=== PATIENT | female | born 1965 | race Caucasian/White ===

== ENCOUNTER 2018-08-07 11:06 | Outpatient (REF) | payer BC, SELFPAY ==
[2018-08-07 19:43] LABS: ALT 48 U/L (12-78); AST 20 U/L (15-37); Anion Gap 10.5 mmol/L (3-11); BUN 31 mg/dL (7-18); CO2 28.5 mmol/L (21.0-32.0); CREATININE 1.15 mg/dL (0.55-1.02); Calcium 9.3 mg/dL (8.5-10.1); Chloride 104 mmol/L (98-107); Estimated GFR 48.99 (mL/min/1.73m2); Glucose 104 mg/dL (70-100); Potassium 4.1 mmol/L (3.5-5.1); Sodium 143 mmol/L (136-145); TSH 0.66 uIU/mL (0.358-3.74)
[2018-08-07 20:30] LABS: COMMENT (LAB VIEW ONLY) 121.99 mg/dL; Microalb ug/mg Crea 5.7 ug/mg Cr
== END 2018-08-07 11:26 ==
LOC: NCHCN 11:06
PROVIDERS: PCP Physician Assistant Medical; Visit Provider Nurse Practitioner Family
DX: E03.9 Hypothyroidism, unspecified (principal); I10 Essential (primary) hypertension
CPT/HCPCS: 80048; 82043; 82570; 84443; 84450; 84460; 87480; 87510; 87660

== ENCOUNTER 2018-08-27 10:31 | Outpatient (REF) | payer BC, SELFPAY ==
[2018-08-27 19:28] LABS: Cholesterol 192 mg/dL (50-200); HDL Cholesterol 47 mg/dL (40-60); LDL CHOLESTEROL 112 mg/dL (<100); Triglyceride 207 mg/dL (30-150)
== END 2018-08-27 10:51 ==
LOC: NCHCN 10:31
PROVIDERS: PCP Physician Assistant Medical; Visit Provider Nurse Practitioner Family
DX: E78.5 Hyperlipidemia, unspecified (principal)
CPT/HCPCS: 80061; 83721

== ENCOUNTER 2019-08-18 10:13 | Outpatient (REF) | payer BC, SELFPAY ==
[2019-08-18 20:42] LABS: ALT 37 U/L (14-59); AST 19 U/L (15-37); Albumin 4.2 g/dL (3.4-5.0); Alkaline Phosphatase 124 U/L (46-116); Anion Gap 7.5 mmol/L (3-11); BUN 30 mg/dL (7-18); Bilirubin, Total 0.3 mg/dL (0.2-1.0); CO2 30.5 mmol/L (21.0-32.0); CREATININE 0.72 mg/dL (0.55-1.02); Calcium 9.2 mg/dL (8.5-10.1); Chloride 104 mmol/L (98-107); Glucose 92 mg/dL (74-106); Potassium 3.9 mmol/L (3.5-5.1); Sodium 142 mmol/L (136-145); TSH (W/Ref FT4) 0.64 uIU/mL (0.36-3.74); Total Protein 7.1 g/dL (6.4-8.2)
[2019-08-18 21:06] LABS: HCT 38.2 % (36.0-46.0); HGB 12.3 g/dL (12.0-15.5); Mean Corp. HGB Concentration 32.2 g/dL (32.0-36.0); Mean Corpuscular Hemoglobin 28.3 pg (27.0-33.0); Mean Corpuscular Volume 87.8 fL (80-95); Mean Platelet Volume 10.1 fL (8.0-11.0); Platelet Count 244 x1000/uL (130-400); RBC 4.35 m/cumm (4.00-5.20); RBC Distribution Width 13.4 % (11.7-14.6); White Blood Cell Count 5.06 k/cumm (4.4-10.8)
[2019-08-18 21:30] LABS: Hemoglobin A1C 6.3 % (3.8-5.6)
== END 2019-08-18 10:33 ==
LOC: NCHCN 10:13
PROVIDERS: PCP Physician Assistant Medical; Visit Provider Nurse Practitioner Family
DX: I10 Essential (primary) hypertension (principal); E30.9 Disorder of puberty, unspecified; R53.83 Other fatigue; R73.9 Hyperglycemia, unspecified
CPT/HCPCS: 80053; 85027; 83036; 84443

== ENCOUNTER 2020-11-22 12:19 | Outpatient (REF) | payer BC, SELFPAY ==
[2020-11-22 16:00] LABS: ALT 43 U/L (14-59); AST 22 U/L (15-37); Albumin 4.1 g/dL (3.4-5.0); Alkaline Phosphatase 126 U/L (46-116); Anion Gap 7.1 mmol/L (3-11); BUN 30 mg/dL (7-18); Bilirubin, Total 0.3 mg/dL (0.2-1.0); CO2 30.9 mmol/L (21.0-32.0); CREATININE 0.9 mg/dL (0.55-1.02); Calcium 9.3 mg/dL (8.5-10.1); Calculated LDL 88 mg/dL (<100); Chloride 104 mmol/L (98-107); Cholesterol 192 mg/dL (<200); Glucose 93 mg/dL (74-106); HDL Cholesterol 46 mg/dL (40-60); Potassium 4.2 mmol/L (3.5-5.1); Sodium 142 mmol/L (136-145); TSH 0.66 uIU/mL (0.36-3.74); Total Protein 7.3 g/dL (6.4-8.2); Triglyceride 291 mg/dL (<150)
== END 2020-11-22 12:20 | disposition home or self-care (01) ==
LOC: NCHCN 12:19
PROVIDERS: PCP Physician Assistant Medical; Visit Provider Nurse Practitioner Family
DX: R73.03 Prediabetes (principal); I10 Essential (primary) hypertension; E03.9 Hypothyroidism, unspecified; E78.5 Hyperlipidemia, unspecified
CPT/HCPCS: 80053; 80061; 83036; 84443

== ENCOUNTER 2021-11-20 16:10 | Outpatient (REF) | payer BC, SELFPAY ==
[2021-11-20 20:15] LABS: ALT 65 U/L (14-59); AST 31 U/L (15-37); Albumin 4.1 g/dL (3.4-5.0); Alkaline Phosphatase 118 U/L (46-116); Anion Gap 7.2 mmol/L (3-11); BUN 27 mg/dL (7-18); Bilirubin, Total 0.4 mg/dL (0.2-1.0); CO2 29.8 mmol/L (21.0-32.0); CREATININE 0.8 mg/dL (0.55-1.02); Calcium 9.4 mg/dL (8.5-10.1); Calculated LDL 98 mg/dL (<100); Chloride 102 mmol/L (98-107); Cholesterol 197 mg/dL (<200); Glucose 101 mg/dL (74-106); HDL Cholesterol 46 mg/dL (40-60); Potassium 4.6 mmol/L (3.5-5.1); Sodium 139 mmol/L (136-145); TSH 0.38 uIU/mL (0.36-3.74); Total Protein 7.4 g/dL (6.4-8.2); Triglyceride 267 mg/dL (<150)
== END 2021-11-20 16:11 | disposition home or self-care (01) ==
LOC: NCHCN 16:10
PROVIDERS: PCP Physician Assistant Medical; Visit Provider Nurse Practitioner Family
DX: I10 Essential (primary) hypertension (principal); E78.5 Hyperlipidemia, unspecified; E03.9 Hypothyroidism, unspecified; R73.03 Prediabetes
CPT/HCPCS: 80053; 80061; 84443

== ENCOUNTER 2022-11-19 13:31 | Outpatient (REF) | payer BC, SELFPAY ==
[2022-11-19 20:23] LABS: ALT 43 U/L (14-59); AST 24 U/L (15-37); Albumin 4.1 g/dL (3.4-5.0); Alkaline Phosphatase 120 U/L (46-116); Anion Gap 9.8 mmol/L (3-11); BUN 22 mg/dL (7-18); Bilirubin, Total 0.3 mg/dL (0.2-1.0); CO2 27.2 mmol/L (21.0-32.0); Calcium 9.7 mg/dL (8.5-10.1); Calculated LDL 89 mg/dL (<100); Chloride 104 mmol/L (98-107); Cholesterol 184 mg/dL (<200); Glucose 109 mg/dL (74-106); HDL Cholesterol 54 mg/dL (40-60); Potassium 4.3 mmol/L (3.5-5.1); Sodium 141 mmol/L (136-145); TSH 0.72 uIU/mL (0.36-3.74); Total Protein 7.8 g/dL (6.4-8.2); Triglyceride 206 mg/dL (<150)
== END 2022-11-19 13:32 | disposition home or self-care (01) ==
LOC: NCHCN 13:31
PROVIDERS: PCP Physician Assistant Medical; Visit Provider Nurse Practitioner Family
DX: I10 Essential (primary) hypertension (principal); E78.5 Hyperlipidemia, unspecified; E03.9 Hypothyroidism, unspecified
CPT/HCPCS: 80053; 80061; 84443

== ENCOUNTER 2023-05-19 14:18 | Outpatient (REF) | payer BC, SELFPAY ==
[2023-05-19 19:28] LABS: TSH (W/Ref FT4) 0.48 uIU/mL (0.36-3.74)
== END 2023-05-19 14:19 | disposition home or self-care (01) ==
LOC: NCHCN 14:18
PROVIDERS: PCP Physician Assistant Medical; Visit Provider Nurse Practitioner Family
DX: R61 Generalized hyperhidrosis (principal)
CPT/HCPCS: 84443

== ENCOUNTER 2023-11-17 15:14 | Outpatient (REF) | payer BC, SELFPAY ==
--- NOTE | 2023-11-17 11:20 | SKI_PTH ---
PATIENT: Mally Pat LOC: [facility]#:[id number] AGE/SX: 58/F ROOM: RE11/17/[address]: Brittney Hector : 1965 BED: DIS: 11/17/2023 SPEC #: [id number] RECD: 11/17/23 18:20 STATUS: RUBI REQ #: [id number] YORDAN: 11/17/23 11:[address] RECD BY: Berta Osei ENTERED: 11/17/23 18:21 SP TYPE: RUIZ ARRIETA DR: Darell Orourke V Tissues: 1 - SKIN BIOPSY(SHAVE/PUNCH) Procedures: SKIN LEVEL 4 Comments: [id number]
[2023-11-17 19:00] LABS: ALT 38 U/L (14-59); AST 23 U/L (15-37); Alkaline Phosphatase 101 U/L (46-116); Anion Gap 8.5 mmol/L (3-11); BUN 21 mg/dL (7-18); Bilirubin, Total 0.3 mg/dL (0.2-1.0); CO2 30.5 mmol/L (21.0-32.0); Calcium 9.3 mg/dL (8.5-10.1); Chloride 102 mmol/L (98-107); Estimated GFR 64.49 (mL/min/1.73m2); Glucose 104 mg/dL (74-106); Potassium 3.9 mmol/L (3.5-5.1); Sodium 141 mmol/L (136-145); Total Protein 7.5 g/dL (6.4-8.2)
== END 2023-11-17 15:15 | disposition home or self-care (01) ==
LOC: NCHCN 15:14
PROVIDERS: PCP Physician Assistant Medical; Visit Provider Nurse Practitioner Family
DX: E03.9 Hypothyroidism, unspecified (principal); I10 Essential (primary) hypertension; D22.62 Melanocytic nevi of left upper limb, including shoulder
CPT/HCPCS: 80053; 84443; 88305